=== PATIENT | female | born 1935 | race Caucasian/White ===

== ENCOUNTER 2022-07-26 19:15 | Emergency (ER) | payer MEDICARE, BC ==
[2022-07-26] MEDS ORDERED: Amoxicillin/Clavulanate K 875-125 MG Tab PO ONE (21:07)
[2022-07-26 21:22] LABS: ESTIMATED GFR 62 mL/min (>60)
== END 2022-07-26 21:36 | disposition home or self-care (01) ==
LOC: FB.ED 19:15
DX: N39.0 Urinary tract infection, site not specified (principal); D84.821 Immunodeficiency due to drugs; Z79.899 Other long term (current) drug therapy; Z79.82 Long term (current) use of aspirin
CPT/HCPCS: 36415; 80053; 81001; 85025; 87086; 87088; 87186; 99284; A9270

== ENCOUNTER 2024-06-21 10:18 | Day surgery (SDC) | payer MEDICARE, BC ==
[~2024-06-21 10:18] MED LIST: Sodium Chloride 0.9% 10 ML Syringe FLUSH PRN
[2024-06-21] MEDS ORDERED: Midazolam 1 MG/ML 2 ML SDV IV ONE (10:19)
[2024-06-21] MEDS ORDERED: fentaNYL 100 MCG/2 ML SDV IV ONE (10:19)
[2024-06-21] MEDS: Lactated Ringers 1,000 ML IV PRN (11:20)
[2024-06-21] MEDS: acetaZOLAMIDE 500 MG Cap.ER PO ONE (12:11)
== END 2024-06-21 12:32 | disposition home or self-care (01) ==
LOC: FB.SDS 10:18
PROVIDERS: ATTEND Ophthalmology
DX: H25.9 Unspecified age-related cataract (principal); F33.9 Major depressive disorder, recurrent, unspecified; E78.5 Hyperlipidemia, unspecified; R33.9 Retention of urine, unspecified; R03.0 Elevated blood-pressure reading, without diagnosis of hypertension; C77.5 Secondary and unspecified malignant neoplasm of intrapelvic lymph nodes; M81.0 Age-related osteoporosis without current pathological fracture; Z79.82 Long term (current) use of aspirin; Z79.899 Other long term (current) drug therapy
CPT/HCPCS: 66984; A9270; J2250; J3010; J7120; V2632; 00142; 99100